=== PATIENT | female | born 1940 | race Caucasian/White ===

== ENCOUNTER 2021-03-12 14:43 | Emergency (ER) | payer MEDICARE ==
[~2021-03-12] VITALS: Ht 160 cm; Wt 90.7 kg
--- NOTE | 2021-03-12 14:58 | ED GI ---
General Chief Complaint: Abdominal/GI Problems Stated Complaint: ABDOMINAL PAIN | VOMITING History of Present Illness Date Seen by Provider: Mar 12, 2021 Time Seen by Provider: 14:58 Initial Comments 80-year-old female presents with epigastric pain, and vomiting. Patient reports symptoms started around 11 PM. Patient is have 1 episode of vomiting. Patient reports that she had an EGD 5 days ago at [facility]. Pain does not radiate. She has no diarrhea or constipation. Allergies and Home Medications Allergies Coded Allergies: Penicillins (Verified Allergy, Unknown, 03/12/21) Sulfa (Sulfonamide Antibiotics) (Verified Allergy, Unknown, 03/12/21) iodine (Verified Allergy, Unknown, 03/12/21) latex (Verified Allergy, Unknown, 03/12/21) Home Medications Ibuprofen 800 Mg Tablet, 800 MG PO Q8H PRN for PAIN Prescribed by: TYRESE MILLARD on 03/12/21 171 Metoclopramide HCl 5 Mg Tablet, 5 MG PO TID Prescribed by: TYRESE MILLARD on 03/12/21 171 Ondansetron 4 Mg Tab.rapdis, 4 MG PO Q6H PRN for NAUSEA/VOMITING Prescribed by: TYRESE MILLARD on 03/12/21 1725 Patient Home Medication List Home Medication List Reviewed: Yes Review of Systems Review of Systems Constitutional: No chills, No fever EENTM: No Symptoms Reported Respiratory: No Symptoms Reported Gastrointestinal: Denies Abdomen Distended; Abdominal Pain; Denies Constipated, Denies Diarrhea; Nausea, Vomiting Musculoskeletal: no symptoms reported Skin: no symptoms reported Psychiatric/Neurological: No Symptoms Reported Past Xecpkkt-Gvldpl-Fgoduf Hx Past Med/Social Hx: Reviewed Nursing Past Med/Soc Hx Physical Exam Vital Signs Vital Signs - First Documented 03/12/21 14:46 Temp 36.3 Pulse 112 Resp 18 B/P (MAP) 214/89 (130) Pulse Ox 100 O2 Delivery Room Air Capillary Refill : Height/Weight/BMI Height: '" Weight: lbs. oz. kg; BMI Method: General Appearance: mild distress Respiratory: lungs clear, normal breath sounds Cardiovascular: normal peripheral pulses, regular rate, rhythm Gastrointestinal: soft; No distended, No guarding, No rebound; tenderness (Epigastric) Extremities: non-tender, normal inspection Neurologic/Psychiatric: alert, normal mood/affect, oriented x 3 Skin: normal color, warm/dry Focused Exam Lactate Level 03/12/21 15:40: Lactic Acid Level 1.25 Lactic Acid Level Laboratory Tests Test 03/12/21 15:40 Lactic Acid Level 1.25 MMOL/L (0.50-2.00) Progress/Results/Core Measures Results/Orders Lab Results Laboratory Tests Test 03/12/21 14:55 03/12/21 15:12 03/12/21 15:40 Range/Units Urine Color YELLOW Urine Clarity CLEAR Urine pH 7.0 5-9 Urine Specific [place] 1.015 L 1.016-1.022 Urine Protein NEGATIVE NEGATIVE Urine Glucose (UA) NEGATIVE NEGATIVE Urine Ketones 1+ H NEGATIVE Urine Nitrite NEGATIVE NEGATIVE Urine Bilirubin NEGATIVE NEGATIVE Urine Urobilinogen 0.2 < = 1.0 MG/DL Urine Leukocyte Esterase NEGATIVE NEGATIVE Urine RBC (Auto) 2+ H NEGATIVE Urine RBC 50-100 H /HPF Urine WBC NONE /HPF Urine Squamous Epithelial Cells 2-5 /HPF Urine Crystals NONE /LPF Urine Bacteria NEGATIVE /HPF Urine Casts NONE /LPF Urine Mucus NEGATIVE /LPF Urine Culture Indicated NO White Blood Count 16.7 H 4.3-11.0 10^3/uL Red Blood Count 4.48 4.35-5.85 10^6/uL Hemoglobin 11.6 11.5-16.0 G/DL Hematocrit 37 35-52 % Mean Corpuscular Volume 82 80-99 FL Mean Corpuscular Hemoglobin 26 25-34 PG Mean Corpuscular Hemoglobin Concent 32 32-36 G/DL Red Cell Distribution Width 14.6 H 10.0-14.5 % Platelet Count 522 H 130-400 10^3/uL Mean Platelet Volume 9.1 7.4-10.4 FL Immature Granulocyte % (Auto) 0 % Neutrophils (%) (Auto) 86 H 42-75 % Lymphocytes (%) (Auto) 8 L 12-44 % Monocytes (%) (Auto) 5 0-12 % Eosinophils (%) (Auto) 0 0-10 % Basophils (%) (Auto) 0 0-10 % Neutrophils # (Auto) 14.4 H 1.8-7.8 X 10^3 Lymphocytes # (Auto) 1.3 1.0-4.0 X 10^3 Monocytes # (Auto) 0.8 0.0-1.0 X 10^3 Eosinophils # (Auto) 0.0 0.0-0.3 10^3/uL Basophils # (Auto) 0.0 0.0-0.1 10^3/uL Immature Granulocyte # (Auto) 0.1 0.0-0.1 10^3/uL Neutrophils % (Manual) 90 % Lymphocytes % (Manual) 6 % Monocytes % (Manual) 4 % Sodium Level 141 135-145 MMOL/L Potassium Level 3.1 L 3.6-5.0 MMOL/L Chloride Level 102 98-107 MMOL/L Carbon Dioxide Level 26 21-32 MMOL/L Anion Gap 13 5-14 MMOL/L Blood Urea Nitrogen 13 7-18 MG/DL Creatinine 0.71 0.60-1.30 MG/DL Estimat Glomerular Filtration Rate > 60 BUN/Creatinine Ratio 18 Glucose Level 144 H 70-105 MG/DL Calcium Level 9.3 8.5-10.1 MG/DL Corrected Calcium 9.3 8.5-10.1 MG/DL Total Bilirubin 0.3 0.1-1.0 MG/DL Aspartate Amino Transf (AST/SGOT) 24 5-34 U/L Alanine Aminotransferase (ALT/SGPT) 20 0-55 U/L Alkaline Phosphatase 91 40-136 U/L Total Protein 6.7 6.4-8.2 GM/DL Albumin 4.0 3.2-4.5 GM/DL Lipase 15 8-78 U/L Lactic Acid Level 1.25 0.50-2.00 MMOL/L My Orders Orders - MILLARD,TYRESE L DO Cbc With Automated Diff (03/12/21 15:01) Comprehensive Metabolic Panel (03/12/21 15:01) Lactic Acid Analyzer (03/12/21 15:01) Lipase (03/12/21 15:01) Acute Abd Series (03/12/21 15:01) Ondansetron Injection (Zofran Injectio (03/12/21 15:15) Famotidine Injection (Pepcid Injection) (03/12/21 15:06) Hyoscyamine Sl Tablet (Levsin Sl Tablet) (03/12/21 15:15) Manual Differential (03/12/21 15:12) Lidocaine 2% Viscous 15 Ml (Xylocaine Vi (03/12/21 15:45) Antacid Suspension (Mylanta Suspension (03/12/21 15:45) Lactated Ringers (Lr 1000 Ml Iv Solution (03/12/21 15:40) Ua Culture If Indicated (03/12/21 16:27) Ketorolac Injection (Toradol Injection) (03/12/21 16:27) Ct Abdomen/Pelvis Wo (03/12/21 16:27) Metoclopramide Injection (Reglan Injecti (03/12/21 17:19) Medications Given in ED Current Medications Medications Dose Ordered Sig/Haley Route Start Time Stop Time Status Last Admin Dose Admin Al Hydrox/Mg Hydrox/Simethicone 30 ml ONCE ONCE PO 03/12/21 15:45 03/12/21 15:46 DC 03/12/21 15:50 30 ML Hyoscyamine Sulfate 0.125 mg ONCE ONCE PO 03/12/21 15:15 03/12/21 15:16 DC 03/12/21 15:33 0.125 MG Lidocaine HCl 15 ml ONCE ONCE PO 03/12/21 15:45 03/12/21 15:46 DC 03/12/21 15:49 15 ML Ondansetron HCl 4 mg ONCE ONCE IVP 03/12/21 15:15 03/12/21 15:16 DC 03/12/21 15:17 4 MG Vital Signs/I&O 03/12/21 14:46 Temp 36.3 Pulse 112 Resp 18 B/P (MAP) 214/89 (130) Pulse Ox 100 O2 Delivery Room Air Progress Progress Note : Progress Note Patient with a 9 mm meter kidney stone in the left ureter. Discussed with her that she will need to follow-up with urologist for further treatment. Patient will need to call the urology office in the morning to arrange for an appoi ntment. Given Reglan and ibuprofen for pain patient already has home narcotic pain medication. I did discuss with her that pain will not get to 0 and which only try to make it more manageable. Patient stable and discharged Diagnostic Imaging Diagonstic Imaging: Xray Plain Films/CT/US/NM/MRI: abdomen Comments ACUTE ABD SERIES HISTORY: Abdominal pain, nausea and vomiting. COMPARISON: None. TECHNIQUE: Frontal view of the chest. Upright and supine frontal views of the abdomen. FINDINGS: The right Port-A-Cath tip projects over the low SVC. Lung volumes are mildly large. There is eventration of the diaphragm. No focal consolidation is seen. There is no pleural effusion or pneumothorax. The cardiac silhouette is normal in size. Surgical clips are seen in the upper abdomen. There are mildly prominent loops of small bowel in the midabdomen without high-grade distention. A small amount of gas and stool is seen in the colon. There are surgical clips in the inguinal region, bilaterally. No large collection of free air is seen. IMPRESSION: 1. Mildly prominent loops of small bowel in the midabdomen without high-grade distention seen. This may be due to mild ileus or low-grade bowel obstruction. 2. No acute pulmonary abnormality. Diagonstic Imaging: CT Plain Films/CT/US/NM/MRI: abdomen Comments Date of Exam:03/12/21 CT ABDOMEN/PELVIS WO EXAMINATION: CT abdomen and pelvis without contrast. TECHNIQUE: Multiple contiguous axial images were obtained through the abdomen and pelvis without the use of intravenous contrast. All CT scans use one or more of the following dose optimizing techniques: automated exposure control, MA and/or KvP adjustment based on patient size and exam type or iterative reconstruction. HISTORY: Abdominal pain. COMPARISON: Acute abdominal series 03/12/2021. FINDINGS: Lung bases: The lung bases are clear. Solid organs: The liver is normal. The gallbladder is surgically absent. There is no biliary ductal dilation. The pancreas is either atrophic or surgically absent as there are numerous surgical clips within the expected location of the pancreas. Spleen is normal. Adrenal glands are normal. There is a 0.9 cm calculus within the mid left ureter resulting in moderate left hydronephrosis and hydroureter. There is asymmetric left perinephric and retroperitoneal stranding likely secondary to obstruction. The right kidney is unremarkable. Bowel: There is a small hiatal hernia. There is no bowel obstruction. The colon and appendix are normal. Peritoneum: There is no intraperitoneal free fluid or free air. No suspicious lymphadenopathy. Vasculature: Calcification of the aorta without aneurysm. Musculoskeletal: Degenerative changes of the spine without suspicious osseous lesion or compression fracture. Pelvis: The uterus is surgically absent. No adnexal mass. The urinary bladder is normal. IMPRESSION: A 0.9 cm calculus in the mid left ureter resulting in moderate left hydronephrosis. Reviewed: Reviewed by Me, Reviewed/Discussed Departure Impression Primary Impression: Calculus of left ureter Disposition: 01 HOME, SELF-CARE Condition: Stable Departure-Patient Inst. Referrals: MALACHI ENCARNACION DO (PCP/Family) Primary Care Physician MILA PINTO MD Patient Instructions: Kidney Stones in Adults, Renal Colic Add. Discharge Instructions: Call Dr. Pinto's office in the morning to arrange for an appointment All discharge instructions reviewed with patient and/or family. Voiced u nderstanding. Scripts Ondansetron (Ondansetron Odt) 4 Mg Tab.rapdis 4 MG PO Q6H PRN for NAUSEA/VOMITING, #20 TAB 0 Refills . Prov: TYRESE MILLARD DO 03/12/21 Ibuprofen (Ibuprofen) 800 Mg Tablet 800 MG PO Q8H PRN for PAIN, #30 TAB 0 Refills . Prov: TYRESE MILLARD DO 03/12/21 Metoclopramide HCl (Reglan) 5 Mg Tablet 5 MG PO TID, #10 TAB . Prov: TYRESE MILLARD DO 03/12/21 Cephalexin (Cephalexin) 500 Mg Tablet 500 MG PO QID, #20 TAB 0 Refills Prov: TYRESE MILLARD DO 03/12/21 Copy Copies To 1: MILA PINTO MD, TREVOR L DO Mar 12, 2021 14:58
[2021-03-12] MEDS ORDERED: FAMOTIDINE 20MG/2ML IV (PEPCID) IV STA (15:06)
[2021-03-12] MEDS ORDERED: HYOSCYAMINE 0.125 MG (LEVSIN) TAB PO ONE (15:15)
[2021-03-12] MEDS ORDERED: ONDANSETRON 4 MG/2 ML (SDV) Z0FRAN IVP ONE (15:15)
[2021-03-12 15:17] LABS: HEMATOCRIT 37 % (35-52); HEMOGLOBIN 11.6 G/DL (11.5-16.0); MEAN CORPUSCULAR HEMOGLOBIN 26 PG (25-34); MEAN CORPUSCULAR HGB CONC 32 G/DL (32-36); MEAN CORPUSCULAR VOLUME 82 FL (80-99); MEAN PLATELET VOLUME 9.1 FL (7.4-10.4); PLATELET COUNT 522 10^3/uL (130-400); WHITE BLOOD COUNT 16.7 10^3/uL (4.3-11.0)
[2021-03-12 15:18] LABS: BASOPHILS % (AUTO) 0 % (0-10); EOSINOPHILS % (AUTO) 0 % (0-10); LYMPHOCYTES # (AUTO) 1.3 X 10^3 (1.0-4.0); LYMPHOCYTES % (AUTO) 8 % (12-44); MONOCYTES # (AUTO) 0.8 X 10^3 (0.0-1.0); MONOCYTES % (AUTO) 5 % (0-12); NEUTROPHILS # (AUTO) 14.4 X 10^3 (1.8-7.8); NEUTROPHILS % (AUTO) 86 % (42-75)
[2021-03-12 15:35] LABS: ALANINE AMINOTRANSFERASE 20 U/L (0-55); ALKALINE PHOSPHATASE 91 U/L (40-136); BILIRUBIN,TOTAL 0.3 MG/DL (0.1-1.0); BUN/CREATININE RATIO 18; CALCIUM 9.3 MG/DL (8.5-10.1); CARBON DIOXIDE 26 MMOL/L (21-32); CHLORIDE 102 MMOL/L (98-107); CREATININE SERUM 0.71 MG/DL (0.60-1.30); GFR ESTIMATED > 60; GLUCOSE 144 MG/DL (70-105); LIPASE 15 U/L (8-78); POTASSIUM 3.1 MMOL/L (3.6-5.0); SODIUM 141 MMOL/L (135-145); TOTAL PROTEIN 6.7 GM/DL (6.4-8.2)
[2021-03-12 15:38] LABS: LYMPHOCYTES % (MANUAL) 6 %; MONOCYTES % (MANUAL) 4 %; NEUTROPHILS % (MANUAL) 90 %
[2021-03-12] MEDS ORDERED: LACTATED RINGERS 1,000 ML IV STA (15:40)
[2021-03-12] MEDS ORDERED: ANTACID SUSP 30 ML UDC (MYLANTA) PO ONE (15:45)
[2021-03-12] MEDS ORDERED: LIDOCAINE 2% VISCOUS 15 ML UDC PO ONE (15:45)
--- NOTE | 2021-03-12 15:48 | Diagnostic Imaging Report ---
HISTORY: Abdominal pain, nausea and vomiting. COMPARISON: None. TECHNIQUE: Frontal view of the chest. Upright and supine frontal views of the abdomen. FINDINGS: The right Port-A-Cath tip projects over the low SVC. Lung volumes are mildly large. There is eventration of the diaphragm. No focal consolidation is seen. There is no pleural effusion or pneumothorax. The cardiac silhouette is normal in size. Surgical clips are seen in the upper abdomen. There are mildly prominent loops of small bowel in the midabdomen without high-grade distention. A small amount of gas and stool is seen in the colon. There are surgical clips in the inguinal region, bilaterally. No large collection of free air is seen. IMPRESSION: 1. Mildly prominent loops of small bowel in the midabdomen without high-grade distention seen. This may be due to mild ileus or low-grade bowel obstruction. 2. No acute pulmonary abnormality. Dictated by: Dictated on workstation # [id number]
[2021-03-12] MEDS ORDERED: KETOROLAC 30 MG/ML VIAL IVP STA (16:27)
[2021-03-12 16:34] LABS: BACTERIA,URINE NEGATIVE /HPF; BILIRUBIN,URINE NEGATIVE (NEGATIVE); CLARITY,URINE CLEAR; COLOR,URINE YELLOW; GLUCOSE, URINE (UA) NEGATIVE (NEGATIVE); KETONES,URINE 1+ (NEGATIVE); LEUKOCYTE ESTERASE ,URINE NEGATIVE (NEGATIVE); NITRITE,URINE NEGATIVE (NEGATIVE); PROTEIN,URINE NEGATIVE (NEGATIVE); RBC,URINE 50-100 /HPF
--- NOTE | 2021-03-12 17:01 | Diagnostic Imaging Report ---
EXAMINATION: CT abdomen and pelvis without contrast. TECHNIQUE: Multiple contiguous axial images were obtained through the abdomen and pelvis without the use of intravenous contrast. All CT scans use one or more of the following dose optimizing techniques: automated exposure control, MA and/or KvP adjustment based on patient size and exam type or iterative reconstruction. HISTORY: Abdominal pain. COMPARISON: Acute abdominal series 03/12/2021. FINDINGS: Lung bases: The lung bases are clear. Solid organs: The liver is normal. The gallbladder is surgically absent. There is no biliary ductal dilation. The pancreas is either atrophic or surgically absent as there are numerous surgical clips within the expected location of the pancreas. Spleen is normal. Adrenal glands are normal. There is a 0.9 cm calculus within the mid left ureter resulting in moderate left hydronephrosis and hydroureter. There is asymmetric left perinephric and retroperitoneal stranding likely secondary to obstruction. The right kidney is unremarkable. Bowel: There is a small hiatal hernia. There is no bowel obstruction. The colon and appendix are normal. Peritoneum: There is no intraperitoneal free fluid or free air. No suspicious lymphadenopathy. Vasculature: Calcification of the aorta without aneurysm. Musculoskeletal: Degenerative changes of the spine without suspicious osseous lesion or compression fracture. Pelvis: The uterus is surgically absent. No adnexal mass. The urinary bladder is normal. IMPRESSION: A 0.9 cm calculus in the mid left ureter resulting in moderate left hydronephrosis. Dictated by: Dictated on workstation # [id number]
[2021-03-12] MEDS ORDERED: METO5TAB75 PO ×2 (17:19→17:29)
[2021-03-12] MEDS ORDERED: METOCLOPRAMIDE INJ 10 MG/2 ML (REGLAN) IVP STA (17:19)
[2021-03-12] MEDS ORDERED: IBUP-1780 PO ×2 (17:19→17:29)
[2021-03-12] MEDS ORDERED: ONDA4TAB11 PO ×2 (17:25→17:29)
[2021-03-12] MEDS ORDERED: CEPH500T PO (17:28)
[2021-03-12 17:32] VITALS: BP 164/81
== END 2021-03-12 17:35 | disposition home or self-care (01) ==
LOC: ER FS 14:47
DX: N13.2 Hydronephrosis with renal and ureteral calculous obstruction (principal); Z88.0 Allergy status to penicillin; Z88.2 Allergy status to sulfonamides
CPT/HCPCS: 36415; 74022; 74176; 80053; 81000; 83605; 83690; 85007; 85027

== ENCOUNTER → 2021-03-13 | Outpatient (CLI) | payer MEDICARE ==
[~2021-03-13] MED LIST: ACET-2267 PO; BUPR8TAB SL; CEPH500T PO; CLN.1T PO; IBUP-1780 PO; LACT10SO46 PO; LEVO125C4 PO; MELA1TAB20 PO; METF-397 PO; METO5TAB75 PO; NITR-65 PO; ONDA4TAB11 PO; PIOG30TA71 PO; Potassium Chloride PO; TIZA4TAB4 PO; TMSL.4C PO; TRAM50TA3 PO
--- NOTE | 2021-03-13 13:40 | Diagnostic Imaging Report ---
INDICATION: Abdominal pain KUB 1:29 PM There is a 1 cm calcification projecting over the left ureteral distribution near the pelvic inlet. There are surgical eduardo in the left upper abdomen. Bowel gas pattern is normal. IMPRESSION: Left mid ureteral calculus. Position appears unchanged compared to previous day. Dictated by: Dictated on workstation # [id number]
== END ==
LOC: RAD 13:07
PROVIDERS: ATTEND Urology
DX: N20.1 Calculus of ureter (principal)
CPT/HCPCS: 74018

== ENCOUNTER 2021-03-14 06:07 | Day surgery (SDC) | payer MEDICARE ==
[2021-03-14] VITALS (9 sets, daily range): BP systolic 168–192; BP diastolic 64–101
[~2021-03-14] VITALS: Ht 165.1 cm; Wt 90.7 kg
[~2021-03-14 06:07] MED LIST changes: -ACET-2267 PO; -BUPR8TAB SL; -CLN.1T PO; -LACT10SO46 PO; -LEVO125C4 PO; -MELA1TAB20 PO; -METF-397 PO; -NITR-65 PO; -PIOG30TA71 PO; -Potassium Chloride PO; -TIZA4TAB4 PO; -TMSL.4C PO; -TRAM50TA3 PO
--- NOTE | 2021-03-14 07:11 | Progress Note-Pre Operative ---
Pre-Operative Progress Note H&P Reviewed The H&P was reviewed, patient examined and no changes noted. Date Seen by Provider: Mar 14, 2021 Time Seen by Provider: 07:10 Date H&P Reviewed: Mar 14, 2021 Time H&P Reviewed: 07:10 Pre-Operative Diagnosis: LT PROXIMAL URETERAL STONE MILA PINTO MD Mar 14, 2021 07:11
[2021-03-14] MEDS ORDERED: CLN.1T PO (08:00)
[2021-03-14] MEDS ORDERED: LEVO125C4 PO (08:00)
[2021-03-14] MEDS ORDERED: METF-397 PO (08:00)
[2021-03-14] MEDS ORDERED: Potassium Chloride PO (08:00)
[2021-03-14] MEDS ORDERED: MELA1TAB20 PO (08:00)
[2021-03-14] MEDS ORDERED: TIZA4TAB4 PO (08:00)
[2021-03-14] MEDS ORDERED: BUPR8TAB SL (08:00)
[2021-03-14] MEDS ORDERED: LACT10SO46 PO (08:00)
[2021-03-14] MEDS ORDERED: ACET-2267 PO (08:00)
[2021-03-14] MEDS ORDERED: ONDA4TAB11 PO (08:00)
[2021-03-14] MEDS ORDERED: PIOG30TA71 PO (08:00)
[2021-03-14] MEDS ORDERED: LACTATED RINGERS 1,000 ML IV PRN (08:15)
[2021-03-14] MEDS ORDERED: proPOfol 200 MG/20 ML (DIPRIVAN) VIAL IV ONE (08:20)
[2021-03-14] MEDS ORDERED: ONDANSETRON 4 MG/2 ML (SDV) Z0FRAN ONE (08:20)
[2021-03-14] MEDS ORDERED: fentaNYL INJ 100 MCG/2 ML AMP ONE (08:20)
[2021-03-14] MEDS ORDERED: SEVOFLURANE (ULTANE) 15 ML INHAL SOLN ONE ×2 (08:20→08:46)
[2021-03-14] MEDS ORDERED: MIDAZOLAM 2 MG/2 ML (VERSED) VIAL ONE (08:20)
[2021-03-14] MEDS ORDERED: LIDOCAINE PF 2% 5 ML (XYLOCAINE) VIAL ONE (08:20)
--- NOTE | 2021-03-14 08:36 | Progress Note-Post Operative ---
Post-Operative Progess Note Surgeon (s)/Wellness Health Coach (s) Surgeon MILA PINTO MD Wellness Health Coach: NONE Pre-Operative Diagnosis LT PROXIMAL URETERAL STONE Post-Operative Diagnosis SAME Procedure & Operative Findings Date of Procedure 03/14/21 Procedure Performed/Findings LT ESWL Anesthesia Type GENERAL Estimated Blood Loss Estimated blood loss (mL): NONE Specimens/Packing Specimens Removed NONE Packing: NONE MILA PINTO MD Mar 14, 2021 08:36
--- NOTE | 2021-03-14 08:39 | Discharge Inst-Urology ---
Discharge Inst-Urology Reconcile Patient Problems Problems Reviewed?: Yes Final Diagnosis LT PROXIMAL URETERAL STONE Patient Instructions/Follow Up Plan/Assessment/Instructions Please make appointment to been seen in office Tuesday 03/27, KUB prior to it. KUB on way home Post ESWL instructions Increase oral fluids for 48 hours and then as needed. Diet and Activity as tolerated. If questions or concerns contact your physician Or seek help at emergency department. MILA PINTO MD Mar 14, 2021 08:39
--- NOTE | 2021-03-14 08:40 | Diagnostic Imaging Report ---
INDICATION: Nephrolithiasis. EXAMINATION: KUB at 6:31 AM. FINDINGS: There is a 12 mm calculus projecting over the left ureteral distribution at the level of L5-S1. IMPRESSION: Left ureteral lithiasis in a similar location as previously. Dictated by: Dictated on workstation # [id number]
[2021-03-14] MEDS ORDERED: FUROSEMIDE 40 MG/4 ML INJ (LASIX) ONE (08:45)
[2021-03-14] MEDS ORDERED: KETOROLAC 30 MG/ML VIAL ONE (08:45)
--- NOTE | 2021-03-14 09:27 | Anesthesia-General Post-Op ---
General Patient Condition Mental Status/LOC: Same as Preop Cardiovascular: Satisfactory Nausea/Vomiting: Absent Respiratory: Satisfactory Pain: Controlled Complications: Absent Post Op Complications Complications None Follow Up Care/Instructions Patient Instructions None needed. Anesthesia/Patient Condition Patient Condition Patient is doing well, no complaints, stable vital signs, no apparent adverse anesthesia problems. No complications reported per nursing. IKER JENKINS CRNA Mar 14, 2021 09:27
[2021-03-14] MEDS ORDERED: fentaNYL INJ 100 MCG/2 ML AMP IVP ONE (09:30)
[2021-03-14] MEDS ORDERED: ONDANSETRON 4 MG/2 ML (SDV) Z0FRAN IVP PRN (09:30)
[2021-03-14] MEDS ORDERED: LABETALOL HCL 20 MG/4 ML VIAL IV PRN (09:30)
[2021-03-14] MEDS ORDERED: TRAM50TA3 PO (10:29)
[2021-03-14] MEDS ORDERED: NITR-65 PO (10:29)
[2021-03-14] MEDS ORDERED: TMSL.4C PO (10:29)
--- NOTE | 2021-03-14 11:20 | Diagnostic Imaging Report ---
INDICATION: Follow-up ureteral calculus. COMPARISON: Earlier same day FINDINGS: Single supine radiographic view of the abdomen was obtained and again demonstrates large calculus projecting over the left psoas muscle inferiorly. Calculus is essentially stable in position at approximately the L5-S1 intervertebral disc space level. No unexpected radiopaque foreign bodies are seen. Small bowel loops are nondistended. There is no large collection of free intraperitoneal air. IMPRESSION: 1. Large distal left ureteral calculus appears to be in stable position. 2. Nonobstructed small bowel gas pattern. Dictated by: Dictated on workstation # [id number]
--- NOTE | 2021-03-14 14:48 | OPERATIVE REPORT ---
DATE OF SERVICE: 03/14/2021 PREOPERATIVE DIAGNOSIS: Left proximal ureteral stone. POSTOPERATIVE DIAGNOSIS: Left proximal ureteral stone. OPERATION PERFORMED: Left ESWL. SURGEON: Brandyn Pinto MD ANESTHESIA: General. COMPLICATIONS: None. DESCRIPTION OF PROCEDURE: Under satisfactory general anesthesia, the patient in supine position on the ESWL table, the left proximal ureteral stone was localized. Shocks were delivered at kV of 6 up to 8, a total of 3500 shocks completely fragmented the stone. The patient received 30 mg of Toradol and 40 mg of Lasix at the end of the procedure. She tolerated the procedure and anesthesia well and was sent to recovery room in stable condition. Job ID: [id number] DocumentID: [id number] Dictated Date: 03/14/2021 09:17:45 Fruit Dryer Date: 03/14/2021 14:46:56 Dictated By: BRANDYN PINTO MD
== END 2021-03-14 11:20 | disposition home or self-care (01) ==
LOC: SDC 06:07
PROVIDERS: ATTEND Urology
DX: N20.1 Calculus of ureter (principal); I10 Essential (primary) hypertension; E11.9 Type 2 diabetes mellitus without complications; E03.9 Hypothyroidism, unspecified; K21.9 Gastro-esophageal reflux disease without esophagitis; Z87.440 Personal history of urinary (tract) infections; Z79.84 Long term (current) use of oral hypoglycemic drugs; Z79.890 Hormone replacement therapy; Z79.899 Other long term (current) drug therapy
CPT/HCPCS: 74018; 87081

== ENCOUNTER → 2021-03-27 | Outpatient (CLI) | payer MEDICARE ==
[~2021-03-27] MED LIST changes: +ACET-2267 PO; +BUPR8TAB SL; +CLN.1T PO; +LACT10SO46 PO; +LEVO125C4 PO; +MELA1TAB20 PO; +METF-397 PO; +NITR-65 PO; +PIOG30TA71 PO; +Potassium Chloride PO; +TIZA4TAB4 PO; +TMSL.4C PO; +TRAM50TA3 PO
--- NOTE | 2021-03-27 14:06 | Diagnostic Imaging Report ---
EXAMINATION: Abdomen 1 view HISTORY: LT UPPER URETERAL STONE POST ESWL COMPARISON: 03/14/2021 FINDINGS: There is a moderate amount of gas and stool throughout the colon. Multiple surgical clips are seen within the upper abdomen. Nonobstructive bowel gas pattern. The 1.3 cm radiopacity seen within the left abdomen has progressed slightly more inferior and projects over the left sacrum. The lung bases are clear. The osseous structures are intact. IMPRESSION: Inferior migration of the 1.3 cm radiopacity within the left abdomen. Dictated by: Dictated on workstation # [id number]
== END ==
LOC: RAD 11:57
PROVIDERS: ATTEND Urology
DX: N20.1 Calculus of ureter (principal); Z98.890 Other specified postprocedural states
CPT/HCPCS: 74018

== ENCOUNTER → 2022-06-25 | Outpatient (CLI) | payer MEDICARE ==
[~2022-06-25] MED LIST changes: +TIZA-186 PO; -TIZA4TAB4 PO
--- NOTE | 2022-06-25 15:00 | Diagnostic Imaging Report ---
EXAMINATION: Abdomen 1 view HISTORY: LT URETERAL STONE COMPARISON: 03/27/2021 FINDINGS: There is a moderate amount of gas and stool throughout the colon. Nonobstructive bowel gas pattern. Multiple surgical clips within the left upper quadrant and pelvis. The lung bases are clear. Degenerative changes of the hips and spine. Osseous structures are otherwise intact. IMPRESSION: Moderate stool burden without other acute abnormality in the abdomen. Dictated by: Dictated on workstation # [id number]
== END ==
LOC: RAD 12:49
PROVIDERS: ATTEND Urology
DX: N20.1 Calculus of ureter (principal)
CPT/HCPCS: 74018

== ENCOUNTER 2022-07-10 05:35 | Outpatient (CLI) | payer MEDICARE ==
[~2022-07-10] VITALS: Ht 157.5 cm; Wt 82.3 kg
[2022-07-11] MEDS ORDERED: PROM12.511 PO (14:03)
[2022-07-11] MEDS ORDERED: FURO-125 PO (14:05)
== END 2022-07-11 15:17 | disposition home or self-care (01) ==
LOC: PREOP 05:35
PROVIDERS: ATTEND Urology
DX: Z01.818 Encounter for other preprocedural examination (principal)

== ENCOUNTER 2022-07-17 06:41 | Day surgery (SDC) | payer MEDICARE ==
[2022-07-17] VITALS (9 sets, daily range): BP systolic 150–195; BP diastolic 68–89
[~2022-07-17] VITALS: Ht 157.5 cm; Wt 82.3 kg
[~2022-07-17 06:41] MED LIST changes: +FURO-125 PO; +PROM12.511 PO
[2022-07-17] MEDS ORDERED: ONDANSETRON 4 MG/2 ML (SDV) Z0FRAN ONE (06:53)
[2022-07-17] MEDS ORDERED: LIDOCAINE PF 2% 5 ML (XYLOCAINE) VIAL ONE (06:53)
[2022-07-17] MEDS ORDERED: proPOfol 200 MG/20 ML (DIPRIVAN) VIAL IV ONE (06:53)
[2022-07-17] MEDS ORDERED: fentaNYL INJ 100 MCG/2 ML AMP ONE (06:53)
[2022-07-17] MEDS ORDERED: SEVOFLURANE (ULTANE) 15 ML INHAL SOLN ONE ×2 (06:53→08:22)
[2022-07-17] MEDS ORDERED: LACTATED RINGERS 1,000 ML IV PRN (07:00)
--- NOTE | 2022-07-17 07:05 | Progress Note-Pre Operative ---
Pre-Operative Progress Note Date of Available H&P: Jul 17, 2022 Date H&P Reviewed: Jul 17, 2022 Time H&P Reviewed: 07:04 Changes from last HP NONE Pre-Operative Diagnosis: LT PROXIMAL URETERAL STONE MILA PINTO MD Jul 17, 2022 07:05
[2022-07-17] MEDS ORDERED: ONDANSETRON 4 MG/2 ML (SDV) Z0FRAN IV ONE (07:15)
[2022-07-17] MEDS ORDERED: FAMOTIDINE 20MG/2ML IV (PEPCID) IV ONE (07:15)
[2022-07-17] MEDS ORDERED: cefTRIAXone 1 GM PRE-MIX 50 ML IV ONE ×2 (07:22→07:30)
--- NOTE | 2022-07-17 08:00 | Progress Note-Post Operative ---
Post-Operative Progess Note Surgeon (s)/Optical Laboratory Mechanic (s) Surgeon MILA PINTO MD Optical Laboratory Mechanic: NONE Pre-Operative Diagnosis LT PROXIMAL URETERAL STONE Post-Operative Diagnosis SAME Procedure & Operative Findings Date of Procedure 07/17/22 Procedure Performed/Findings LT ESWL Anesthesia Type GENERAL Estimated Blood Loss Estimated blood loss (mL): NONE Specimens/Packing Specimens Removed NONE Packing: NONE MILA PINTO MD Jul 17, 2022 08:00
--- NOTE | 2022-07-17 08:02 | Discharge Inst-Urology ---
Discharge Inst-Urology Reconcile Patient Problems Problems Reviewed?: Yes Final Diagnosis LT PROXIMAL URETERAL STONE Patient Instructions/Follow Up Plan/Assessment/Instructions Please make appointment to been seen in office Monday 07/30. KUB prior to it KUB on way home Post ESWL instructions Increase oral fluids for 48 hours and then as needed. Diet and Activity as tolerated. If questions or concerns contact your physician Or seek help at emergency department. MILA PINTO MD Jul 17, 2022 08:02
--- NOTE | 2022-07-17 08:03 | Diagnostic Imaging Report ---
ABDOMEN/KUB 1VIEW INDICATION: Status post lithotripsy. Urinary tract calculi COMPARISON: 06/25/2022 TECHNIQUE: Supine AP view of the abdomen FINDINGS: No radiographically apparent urinary tract calculi. Scattered pelvic fibulas are unchanged. Surgical changes in the left upper quadrant are similar. There are also multiple surgical clips in the bilateral inguinal regions are stable. Nonobstructive bowel gas pattern. Moderate volume of colonic stool. Stable regional skeleton. IMPRESSION: No radiographically apparent urinary tract calculi. Dictated by: Dictated on workstation # [id number]
[2022-07-17] MEDS ORDERED: GLYCOPYRROLATE 0.2 MG/ML (ROBINUL) 2 ML VIAL ONE (08:06)
[2022-07-17] MEDS ORDERED: PHENYLEPHRINE 100 MCG/ML 10 ML (ANESTHESIA) SYR ONE (08:06)
[2022-07-17] MEDS ORDERED: KETOROLAC 30 MG/ML VIAL ONE (08:20)
[2022-07-17] MEDS ORDERED: FUROSEMIDE 40 MG/4 ML INJ (LASIX) ONE (08:20)
[2022-07-17] MEDS ORDERED: NITR-65 PO (08:38)
[2022-07-17] MEDS ORDERED: KETO10TA PO (08:39)
[2022-07-17] MEDS ORDERED: TMSL.4C PO (08:39)
[2022-07-17] MEDS ORDERED: fentaNYL INJ 100 MCG/2 ML AMP IVP ONE (08:45)
[2022-07-17] MEDS: ONDANSETRON 4 MG/2 ML (SDV) Z0FRAN IVP PRN ×2 (08:57→09:32)
--- NOTE | 2022-07-17 10:33 | Diagnostic Imaging Report ---
REASON FOR EXAM: POST ESWL. COMPARISON: Abdominal radiographs performed earlier the same date. TECHNIQUE: frontal supine view of the abdomen FINDINGS: The bowel gas pattern is nondistended. No large collection of free intraperitoneal air is seen. Scattered small amounts of gas and fecal material are present in the colon. Scattered phleboliths are seen in the pelvis. No calcifications are seen along the expected tract of the ureters. The osseous structures are age-appropriate. IMPRESSION: 1. No calcifications are seen along the expected course of the ureters to suggest obstructing calculi. Recommend continued follow-up as indicated. Dictated by: Dictated on workstation # [id number]
--- NOTE | 2022-07-17 10:36 | Anesthesia-General Post-Op ---
General Patient Condition Mental Status/LOC: Same as Preop Cardiovascular: Satisfactory Nausea/Vomiting: Absent Respiratory: Satisfactory Pain: Controlled Complications: Absent Post Op Complications Complications None Follow Up Care/Instructions Patient Instructions None needed. Anesthesia/Patient Condition Patient Condition Patient is doing well, no complaints, stable vital signs, no apparent adverse anesthesia problems. No complications reported per nursing. D/C home per [facility] Criteria: Yes JAC HUDSON CRNA Jul 17, 2022 10:36
--- NOTE | 2022-07-17 11:25 | OPERATIVE REPORT ---
DATE OF SERVICE: 07/17/2022 PREOPERATIVE DIAGNOSIS: Left proximal ureteral stone. POSTOPERATIVE DIAGNOSIS: Left proximal ureteral stone. OPERATION PERFORMED: Left ESWL. SURGEON: Brandyn Pinto MD. ANESTHESIA: General. COMPLICATIONS: None. DESCRIPTION OF PROCEDURE: Under satisfactory general anesthesia, the patient in supine position on the ESWL table, the left proximal ureteral stone was localized with some difficulty because of bowel and gas and size of the patient. We delivered a total of 2500 shocks delivered until we could not see the stone anymore. We will give her 40 mg of Lasix and 30 mg of Toradol IV at the end of the procedure. She tolerated the procedure and anesthesia well and was sent to recovery room in stable condition. PLAN: We will see how she does and the result of the ESWL. If it did not work for any reason as I told her preoperatively, then we will consider ureteroscopy, which she wanted to start with the ESWL first. Job ID: [id number] DocumentID: [id number] Dictated Date: 07/17/2022 08:21:52 Channel Installer Date: 07/17/2022 11:24:25 Dictated By: BRANDYN PINTO MD
== END 2022-07-17 10:30 | disposition home or self-care (01) ==
LOC: SDC 06:41
PROVIDERS: ATTEND Urology
DX: N20.1 Calculus of ureter (principal); E11.9 Type 2 diabetes mellitus without complications; Z85.89 Personal history of malignant neoplasm of other organs and systems; Z79.84 Long term (current) use of oral hypoglycemic drugs
CPT/HCPCS: 74018; 82947; 87081

== ENCOUNTER → 2022-07-30 | Outpatient (CLI) | payer MEDICARE ==
[~2022-07-30] MED LIST changes: +KETO10TA PO
--- NOTE | 2022-07-30 17:25 | Diagnostic Imaging Report ---
Clinical Indication: Patient is post left ESWL. Left ureteral stone. Exam: [facility] x-ray. Comparison: X-ray of the abdomen dated 07/17/2022. Findings and impression: 1: Stable small calcifications overlying the right lower pelvis region which may represent phleboliths. Otherwise, there are no focal calcifications overlying the expected regions/ pathways of both kidneys, ureters, and bladder regions. 2: There is a nonobstructed bowel gas pattern. There is no evidence of abdominal free air. 3: There is dextroscoliosis of the lumbar spine with hypertrophic vertebral body spurs. 4: Again seen, multiple surgical clips overlying the mid and left upper quadrant regions and bilateral hip regions. Dictated by: Dictated on workstation # [id number]
== END ==
LOC: RAD 12:45
PROVIDERS: ATTEND Urology
DX: N20.1 Calculus of ureter (principal); M41.86 Other forms of scoliosis, lumbar region
CPT/HCPCS: 74018

== ENCOUNTER → 2022-09-27 | Outpatient (CLI) | payer MEDICARE ==
[~2022-09-27] VITALS: Ht 157.5 cm; Wt 82.3 kg
== END | disposition home or self-care (01) ==
LOC: PREOP 08:39
PROVIDERS: ATTEND Otolaryngology Otolaryngology/Facial Plastic Surgery
DX: Z01.818 Encounter for other preprocedural examination (principal)

== ENCOUNTER 2022-10-04 06:20 | Day surgery (SDC) | payer MEDICARE ==
[~2022-10-04] VITALS: Ht 157.5 cm; Wt 82.3 kg
[2022-10-04] VITALS (10 sets, daily range): BP systolic 158–183; BP diastolic 62–89
[2022-10-04 07:23] LABS: BASOPHILS % (AUTO) 1 % (0-10); EOSINOPHILS # (AUTO) 0.2 10^3/uL (0.0-0.3); EOSINOPHILS % (AUTO) 3 % (0-10); HEMATOCRIT 34 % (35-52); LYMPHOCYTES # (AUTO) 1.4 10^3/uL (1.0-4.0); LYMPHOCYTES % (AUTO) 25 % (12-44); MEAN CORPUSCULAR HEMOGLOBIN 29 pg (25-34); MEAN CORPUSCULAR HGB CONC 32 g/dL (32-36); MEAN CORPUSCULAR VOLUME 89 fL (80-99); MEAN PLATELET VOLUME 9.2 fL (9.0-12.2); MONOCYTES # (AUTO) 0.5 10^3/uL (0.0-1.0); MONOCYTES % (AUTO) 9 % (0-12); NEUTROPHILS # (AUTO) 3.4 10^3/uL (1.8-7.8); NEUTROPHILS % (AUTO) 62 % (42-75); PLATELET COUNT 320 10^3/uL (130-400); WHITE BLOOD COUNT 5.4 10^3/uL (4.3-11.0)
[2022-10-04] MEDS ORDERED: LACTATED RINGERS 1,000 ML IV PRN (07:30)
[2022-10-04 07:41] LABS: CALCIUM 9.7 MG/DL (8.5-10.1); CREATININE SERUM 1.21 MG/DL (0.60-1.30); POTASSIUM 3.8 MMOL/L (3.6-5.0)
[2022-10-04] MEDS ORDERED: FAMOTIDINE 20MG/2ML IV (PEPCID) IV ONE (08:30)
[2022-10-04] MEDS ORDERED: ONDANSETRON 4 MG/2 ML (SDV) Z0FRAN IV ONE (08:30)
[2022-10-04] MEDS ORDERED: MUPIROCIN 2% OINT 22 GM (BACTROBAN) TUBE ONE (08:40)
[2022-10-04] MEDS ORDERED: LIDOCAINE/EPI 1%-1:100,000 (XYLOCAINE) 30ML ONE (08:40)
[2022-10-04] MEDS ORDERED: proPOfol 200 MG/20 ML (DIPRIVAN) VIAL IV ONE (08:49)
[2022-10-04] MEDS ORDERED: fentaNYL INJ 100 MCG/2 ML AMP ONE (08:49)
[2022-10-04] MEDS ORDERED: LIDOCAINE PF 2% 5 ML (XYLOCAINE) VIAL ONE (08:49)
--- NOTE | 2022-10-04 08:58 | Progress Note-Pre Operative ---
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
--- NOTE | 2022-10-04 08:59 | Progress Note-Post Operative ---
Post-Operative Progess Note Surgeon (s)/Filter Washer (s) Surgeon FANY MENDEZ MD Filter Washer n/a Pre-Operative Diagnosis Skin Cancer Right Nasal Dorsum Post-Operative Diagnosis same Post-Op Procedure Note Date of Procedure: Oct 04, 2022 Name of Procedure Performed: Excision of Right Nasal Dorsum Lesion with frozen sections, Reconstructions iwth FTSG, Donor Site Right Pre-Auricular Region Description & Findings Description and Findings: n/a Anesthesia Type gen lma Estimated Blood Loss minimal Packing none. Specimen(s) collected/removed right nasal dorsum lesion for frozen section FANY MENDEZ MD Oct 04, 2022 08:59
[2022-10-04] MEDS ORDERED: ACETAMINOPHEN 325 MG TABLET PO PRN (09:00)
[2022-10-04] MEDS ORDERED: SEVOFLURANE (ULTANE) 15 ML INHAL SOLN ONE (09:56)
[2022-10-04] MEDS ORDERED: LIDOCAINE/EPI 1%-1:100,000 (XYLOCAINE) 30ML INJ ONE (10:08)
[2022-10-04] MEDS ORDERED: ONDANSETRON 4 MG/2 ML (SDV) Z0FRAN IVP PRN (10:15)
[2022-10-04] MEDS ORDERED: morphine INJ 10 MG/ML 1ML (SYR OR VIAL) IVP ONE (10:15)
--- NOTE | 2022-10-10 07:46 | Progress Note ---
Standard Progress Note Progress Notes/Assess & Plan Date Seen by a Provider: Oct 04, 2022 Time Seen by a Provider: 08:23 Progress/Assessment & Plan Addendum to Anesthesia Record: Consent was signed by myself and patient on 10-04-22 at 0823. MARICARMEN ALBERTS DO Oct 10, 2022 07:46
--- NOTE | 2022-10-10 08:30 | Anesthesia-General Post-Op ---
General Significant Intra-Op Events Notes Late entry: 10/04 @ 1015 Patient Condition Mental Status/LOC: Same as Preop Cardiovascular: Satisfactory Nausea/Vomiting: Absent Respiratory: Satisfactory Pain: Controlled Complications: Absent Post Op Complications Complications None Follow Up Care/Instructions Patient Instructions None needed. Anesthesia/Patient Condition Patient Condition Patient is doing well, no complaints, stable vital signs, no apparent adverse anesthesia problems. No complications reported per nursing. MEHREEN FABIAN CRNA Oct 10, 2022 08:30
== END 2022-10-04 12:00 | disposition home or self-care (01) ==
LOC: SDC 06:20
PROVIDERS: ATTEND Otolaryngology Otolaryngology/Facial Plastic Surgery
DX: C44.321 Squamous cell carcinoma of skin of nose (principal); L57.0 Actinic keratosis
CPT/HCPCS: 36415; 80048; 85025; 87081; 93005